=== PATIENT | male | born 1980 | race American Indian/Alaskan Native ===

== ENCOUNTER 2018-07-14 01:57 | Emergency (ER) | payer MEDICARE ==
[2018-07-14 03:40] LABS: Basophils # (Auto) 0.1 K/mm3 (0.0-0.1); Eosinophils # (Auto) 0.1 K/mm3 (0.0-0.4); Eosinophils % (Auto) 1.8 % (0.0-4.3); Hematocrit 45.6 % (35.5-45.6); Hemoglobin 16.2 gm/dl (11.8-15.2); Lymphocytes # (Auto) 1.9 K/mm3 (1.2-5.4); Lymphocytes % (Auto) 32.8 % (13.4-35.0); Mean Corpuscular HGB Conc 36 % (32-34); Mean Corpuscular Hemoglobin 31 pg (28-32); Mean Corpuscular Volume 87 fl (84-94); Monocytes # (Auto) 0.5 K/mm3 (0.0-0.8); Monocytes % (Auto) 8.7 % (0.0-7.3); Platelet Count 208 K/mm3 (140-440); Red Blood Count 5.25 M/mm3 (3.65-5.03); Red Cell Distribution Width 12.9 % (13.2-15.2)
[2018-07-14 03:53] LABS: BUN/Creatinine Ratio 18; Blood Urea Nitrogen 14 mg/dL (9-20); Calcium 9.6 mg/dL (8.4-10.2); Hemolysis Index 117
[2018-07-14 04:54] LABS: Bilirubin,Urine NEG (Negative); Blood,Urine NEG (Negative); Color,Urine Yellow (Yellow); Protein,Urine <15 mg/dL mg/dL (Negative); Urobilinogen,Urine < 2.0 mg/dL (<2.0); WBC,Urine < 1.0 /HPF (0.0-6.0)
[2018-07-14 05:02] LABS: RBC,Urine < 1.0 /HPF (0.0-6.0)
--- NOTE | 2018-07-14 10:59 | Emergency Department Report ---
ED General Adult HPI - General Chief complaint: Hyperglycemia Stated complaint: HIGH BLOOD SUGAR Time Seen by Provider: 07/14/18 10:15 Source: patient, family Mode of arrival: Ambulatory Limitations: No Limitations - History of Present Illness Initial comments: Patient presents to the emergency department for hyperglycemia. Patient has type 2 diabetes and states he is not on any medications currently. Patient had previous been on metformin twice daily but was able to get his prescription refilled. Patient denies any chest pain, shortness breath, or abdominal pain. -: Gradual Radiation: non-radiation Severity scale (0 -10): 0 Consistency: constant Improves with: none Worsens with: none Associated Symptoms: denies other symptoms - Related Data Previous Rx's Medication Instructions Recorded Last Taken Type metFORMIN [Glucophage] 500 mg PO BID #60 tablet 07/14/18 Unknown Rx Allergies Allergy/AdvReac Type Severity Reaction Status Date / Time Penicillins Allergy Itching Verified 07/14/18 03:19 ED Review of Systems ROS: Stated complaint: HIGH BLOOD SUGAR Other details as noted in HPI Comment: All other systems reviewed and negative Constitutional: denies: chills, fever Eyes: denies: eye pain, eye discharge, vision change ENT: denies: ear pain, throat pain Respiratory: denies: cough, shortness of breath, wheezing Cardiovascular: denies: chest pain, palpitations Endocrine: no symptoms reported Gastrointestinal: denies: abdominal pain, nausea, diarrhea Genitourinary: denies: urgency, dysuria Musculoskeletal: denies: back pain, joint swelling, arthralgia Skin: denies: rash, lesions Neurological: denies: headache, weakness, paresthesias Psychiatric: denies: anxiety, depression Hematological/Lymphatic: denies: easy bleeding, easy bruising ED Past Medical Hx - Past Medical History Hx Diabetes: Yes - Surgical History Hx Appendectomy: Yes - Social History Smoking Status: Never Smoker Substance Use Type: None - Medications Home Medications: Home Medications Medication Instructions Recorded Confirmed Last Taken Type metFORMIN [Glucophage] 500 mg PO BID #60 tablet 07/14/18 Unknown Rx ED Physical Exam - General Limitations: No Limitations General appearance: alert, in no apparent distress - Head Head exam: Present: atraumatic, normocephalic - Eye Eye exam: Present: normal appearance - ENT ENT exam: Present: mucous membranes moist - Neck Neck exam: Present: normal inspection - Respiratory Respiratory exam: Present: normal lung sounds bilaterally. Absent: respiratory distress, wheezes, rales - Cardiovascular Cardiovascular Exam: Present: regular rate, normal rhythm. Absent: systolic murmur, diastolic murmur, rubs, gallop - GI/Abdominal GI/Abdominal exam: Present: soft, normal bowel sounds. Absent: distended, tenderness - Rectal Rectal exam: Present: deferred - Extremities Exam Extremities exam: Present: normal inspection - Back Exam Back exam: Present: normal inspection - Neurological Exam Neurological exam: Present: alert, oriented X3, CN II-XII intact. Absent: motor sensory deficit - Psychiatric Psychiatric exam: Present: normal affect, normal mood - Skin Skin exam: Present: warm, dry, intact, normal color. Absent: rash ED Course Vital Signs 07/14/18 07/14/18 07/14/18 02:36 03:17 09:16 Temperature 98.9 F 98.9 F Pulse Rate 104 H 109 H Respiratory 18 18 16 Rate Blood Pressure 148/109 Blood Pressure 148/109 [Left] O2 Sat by Pulse 96 98 Oximetry ED Medical Decision Making - Lab Data Result diagrams: 07/14/18 03:23 07/14/18 03:23 - Medical Decision Making Discussed results with patient Critical care attestation.: If time is entered above; I have spent that time in minutes in the direct care of this critically ill patient, excluding procedure time. ED Disposition Clinical Impression: Hyperglycemia, Diabetes Disposition: DC-01 TO HOME OR SELFCARE Is pt being admited?: No Does the pt Need Aspirin: No Condition: Stable Instructions: Diabetes Mellitus Type 2 in Adults (ED) Additional Instructions: return if worse Prescriptions: metFORMIN [Glucophage] 500 mg PO BID #60 tablet Referrals: PRIMARY CARE, [Primary Care Provider] - 3-5 Days Time of Disposition: 10:58
[2018-07-14] MEDS ORDERED: GLUCOPHAGE ONE (11:12)
[2018-07-14] MEDS ORDERED: GLUCOPHAGE PO ONE (11:14)
[2018-07-14 11:15] VITALS: BP 134/92
== END 2018-07-14 11:16 | disposition home or self-care (01) ==
LOC: ED 01:57
DX: E11.65 Type 2 diabetes mellitus with hyperglycemia (principal); Z79.899 Other long term (current) drug therapy; Z88.0 Allergy status to penicillin; Z90.49 Acquired absence of other specified parts of digestive tract
CPT/HCPCS: 36415; 80048; 81001; 82805; 82962; 85025

== ENCOUNTER 2019-05-07 13:40 | Emergency (ER) | payer MEDICARE ==
[2019-05-07 13:52] VITALS: BP 131/98
--- NOTE | 2019-05-07 13:52 | Event Note ---
ED Screening Note ED Screening Note: Pt states that last night his blood sugar was reading TOO HIGH no N/V abd discomfort pt states he has a hemorrhoids/anal fissure PMHx DM, takes 1000mg twice a day, has not taken it in a month This initial assessment/diagnostic orders/clinical plan/treatment(s) is/are subject to change based on patients health status, clinical progression and re- assessment by fellow clinical providers in the ED. Further treatment and workup at subsequent clinical providers discretion. Patient/guardian urged not to elope from the ED as their condition may be serious if not clinically assessed and managed. Initial orders include: labs, UA, accucheck
[2019-05-07 14:46] LABS: Bilirubin,Urine NEG (Negative); Blood,Urine NEG (Negative); Color,Urine Yellow (Yellow); Protein,Urine <15 mg/dL mg/dL (Negative); Urobilinogen,Urine < 2.0 mg/dL (<2.0)
[2019-05-07 15:07] LABS: Hematocrit 44.6 % (35.5-45.6); Hemoglobin 15.4 gm/dl (11.8-15.2); Mean Corpuscular HGB Conc 35 % (32-34); Mean Corpuscular Hemoglobin 30 pg (28-32); Mean Corpuscular Volume 88 fl (84-94); Platelet Count 182 K/mm3 (140-440); Red Blood Count 5.09 M/mm3 (3.65-5.03); Red Cell Distribution Width 12.5 % (13.2-15.2)
[2019-05-07 15:30] LABS: BUN/Creatinine Ratio 16; Blood Urea Nitrogen 14 mg/dL (9-20); Calcium 10.4 mg/dL (8.4-10.2); Hemolysis Index 41
--- NOTE | 2019-05-07 15:35 | Emergency Department Report ---
HPI - General Chief Complaint: Hyperglycemia Time Seen by Provider: 05/07/19 13:48 - HPI HPI: 39-year-old male presents to the emergency department with a complaint of a few days of some abdominal pain, elevated blood sugar readings and he complains of hemorrhoids and a fissure. The patient has a history of [id number] diabetes and used to be on metformin 1000 mg twice daily but has not been on it for one month as he says that his primary care physician did not write him any refills. His PCP is Dr. Ayad Garcia. The abdominal pain is generalized. He denies any nausea, vomiting, dysuria, diarrhea. He does have some pain with bowel movements secondary to the hemorrhoids. He has not taken anything for her symptoms prior to arrival today. ED Past Medical Hx - Past Medical History Previous Medical History?: Yes Hx Diabetes: Yes - Surgical History Past Surgical History?: Yes Hx Appendectomy: Yes - Social History Smoking Status: Never Smoker Substance Use Type: Alcohol - Medications Home Medications: Home Medications Medication Instructions Recorded Confirmed Last Taken Type Hydrocortisone [Anusol-Hc 2.5% TOP 30 gm RC BID #1 tube 05/07/19 Unknown Rx CREAM] Metformin HCl [metFORMIN] 1,000 mg PO BID #60 tablet 05/07/19 Unknown Rx ED Review of Systems ROS: Stated complaint: HIGH BLOOD SUGAR/HEMMORID Other details as noted in HPI Comment: All other systems reviewed and negative Constitutional: denies: chills, fever Eyes: denies: eye pain, vision change ENT: denies: ear pain, throat pain Respiratory: denies: cough, shortness of breath Cardiovascular: denies: chest pain, palpitations Gastrointestinal: abdominal pain. denies: nausea, vomiting Genitourinary: denies: dysuria, discharge Musculoskeletal: denies: back pain, arthralgia Skin: denies: rash, lesions Neurological: denies: headache, weakness Physical Exam - Physical Exam Vital Signs: Vital Signs 05/07/19 13:49 Temperature 99.3 F Pulse Rate 91 H Respiratory 16 Rate Blood Pressure 131/98 O2 Sat by Pulse 99 Oximetry Physical Exam: GENERAL: The patient is well-developed well-nourished. HENT: Normocephalic. Atraumatic. Patient has moist mucous membranes. EYES: Extraocular motions are intact. NECK: Supple. Trachea is midline. CHEST/LUNGS: Clear to auscultation. There is no respiratory distress noted. HEART/CARDIOVASCULAR: Regular. There is no tachycardia. There is no murmur. ABDOMEN: Abdomen is soft, nontender. No guarding. Patient has normal bowel sounds. There is no abdominal distention. SKIN: Skin is warm and dry. NEURO: The patient is awake, alert, and oriented. The patient is cooperative. The patient has no focal neurologic deficits. The patient has normal speech. MUSCULOSKELETAL: There is no tenderness or deformity. There is no limitation range of motion. There is no evidence of acute injury. RECTAL: There is a small nonthrombosed hemorrhoid at the 6 o'clock position. ED Course Vital Signs 05/07/19 13:49 Temperature 99.3 F Pulse Rate 91 H Respiratory 16 Rate Blood Pressure 131/98 O2 Sat by Pulse 99 Oximetry ED Medical Decision Making - Lab Data Result diagrams: 05/07/19 14:53 05/07/19 14:53 - Radiology Data Radiology results: image reviewed interpreted by me: Abdominal x-ray shows nonspecific nonobstructive bowel gas. - Medical Decision Making Regarding the patient's hyperglycemia, the patient does have a blood sugar of 40 0 on his serum glucose level. There is no venous acidosis. No significant elevation in his anion gap, and the patient does not appear to be in diabetic ketoacidosis. An IV was placed and he was given 1 L of IV fluid, along with IV insulin, and upon reevaluation his blood sugars down to about 250. The rest of his labs have been mostly unremarkable. Abdominal x-ray shows nonspecific nonobstructive bowel gas. A rectal examination was done with nurse Enriquez at bedside and the patient appears to have a nonthrombosed external hemorrhoid at the 6 o'clock position. No significant anal fissure seen. The patient will be restarted on his metformin and instructed to follow-up with his primary care physician. He'll be given a prescription for Anusol. He will keep a blood sugar log. He will return to the ER with any worsening of his symptoms or any acute distress. - Differential Diagnosis hemorrhoid, anal fissure, hyperglycemia, DKA, HHNK Critical Care Time: No Critical care attestation.: If time is entered above; I have spent that time in minutes in the direct care of this critically ill patient, excluding procedure time. ED Disposition Clinical Impression: Noncompliance with medication regimen Hyperglycemia due to type 2 diabetes mellitus Qualifiers: Diabetes mellitus manager action insulin use: unspecified manager action insulin use status Qualified Code(s): E11.65 - Type 2 diabetes mellitus with hyperglycemia Abdominal pain Qualifiers: Abdominal location: generalized Qualified Code(s): R10.84 - Generalized abd ominal pain Hemorrhoid Qualifiers: Hemorrhoid type: unspecified Qualified Code(s): K64.9 - Unspecified hemorrhoids Disposition: TO HOME OR SELFCARE Is pt being admited?: No Condition: Stable Instructions: Hemorrhoids (ED), Diabetes Mellitus Type 2 in Adults (ED), Abdominal Pain (ED), Diabetic Hyperglycemia (ED) Additional Instructions: Please follow-up with your primary care physician in the next few days. I am restarting you on your metformin. Try and stay away from food that are high in sugar, carbohydrates and starches. Keep a blood sugar log. Return to the emergency department with any worsening of your symptoms or any acute distress. Prescriptions: Hydrocortisone [Anusol-Hc 2.5% TOP CREAM] 30 gm RC BID #1 tube Metformin HCl [metFORMIN] 1,000 mg PO BID #60 tablet Referrals: Primary Care Provider, Your [Other] - 2-3 Days Time of Disposition: 17:58
[2019-05-07] MEDS ORDERED: HumuLIN R IV ONE (15:45)
[2019-05-07] MEDS ORDERED: NACL 0.9% 1000 ML 1,000 ML IV ONE (15:45)
--- NOTE | 2019-05-07 16:08 | XRay Report ---
SUPINE AND UPRIGHT ABDOMEN 05/07/2019 3:49 PM HISTORY: Abdominal Pain. FINDINGS: There is a normal bowel gas pattern without evidence of obstruction. No free air is identi fied. No abnormal calcifications or organomegaly. No osseous abnormality. IMPRESSION: Negative 2 views of the abdomen. Signer Name: Tommie Huitron MD Signed: 05/07/2019 4:04 PM Workstation Name: [id number]
[2019-05-07 19:10] LABS: Anisocytosis 1+; Basophils % (Manual) 0 % (0.0-1.8); Large Platelets 1+; Ovalocytes 1+; Platelet Estimate Consistent w Auto; Total Cells Counted 100
== END 2019-05-07 18:21 | disposition home or self-care (01) ==
LOC: ED 13:40
DX: E11.65 Type 2 diabetes mellitus with hyperglycemia (principal); K64.9 Unspecified hemorrhoids; Z91.14 Patient's other noncompliance with medication regimen; Z90.49 Acquired absence of other specified parts of digestive tract; Z79.899 Other long term (current) drug therapy; Z88.0 Allergy status to penicillin
CPT/HCPCS: 36415; 74019; 80048; 81001; 82805; 82962; 85007; 85025; 96361; 96374; 99284; J7030; J1815

== ENCOUNTER 2021-10-28 18:19 | Emergency (ER) | payer MEDICARE | END 2021-10-29 04:00 | disposition left against medical advice (07) | LOC: ED 18:19 | DX: R10.9 Unspecified abdominal pain (principal); Z53.21 Procedure and treatment not carried out due to patient leaving prior to being seen by health care provider ==

== ENCOUNTER 2021-10-30 12:22 | Emergency (ER) | payer MEDICARE | END 2021-10-30 16:00 | disposition left against medical advice (07) | LOC: ED 12:22 | DX: T14.8XXA Other injury of unspecified body region, initial encounter (principal); Z53.21 Procedure and treatment not carried out due to patient leaving prior to being seen by health care provider ==

== ENCOUNTER 2021-11-16 22:30 | Emergency (ER) | payer MEDICARE ==
[2021-11-17 04:03] VITALS: BP 152/89
--- NOTE | 2021-11-17 08:03 | Emergency Department Report ---
- General Chief complaint: Skin Rash Stated complaint: OPEN SORES Time Seen by Provider: 11/17/21 07:44 Source: patient Mode of arrival: Ambulatory Limitations: No Limitations - History of Present Illness Initial comments: 41-year-old -[place] male with mental history presents to the emergency room complaining of open sores all over his body for the last 7 months. Patient reports he has a history of diabetes but states that he is not on any medication and is never followed up with any referrals that was given to him. Patient reports that the sore on his bottom have been draining. Patient reports that he was seen here in the past for them and was given some antibiotics but I do not see any visit note for that. complaint: lesion Onset/Timin -: month(s) Tetanus Up to Date: yes Location: generalized Severity: moderate Severity scale (0 -10): 4 Consistency: constant Improves with: none Treatments Prior to Arrival: bandages - Related Data Previous Rx's Medication Instructions Recorded Last Taken Type Hydrocortisone [Anusol-Hc 2.5% TOP 30 gm RC BID #1 tube 05/07/19 Unknown Rx CREAM] Metformin HCl [metFORMIN] 1,000 mg PO BID #60 tablet 05/07/19 Unknown Rx Mupirocin [Bactroban 2%] 1 applic TP TID #1 tube 11/17/21 Unknown Rx Sulfamethoxazole/Trimethoprim 1 each PO BID 10 Days #20 tab 11/17/21 Unknown Rx [Bactrim DS TAB] Allergies Allergy/AdvReac Type Severity Reaction Status Date / Time Penicillins Allergy Itching Verified 11/17/21 04:07 Abscess Boil HPI - HPI Chief Complaint: Skin Rash Stated Complaint: OPEN SORES Time Seen by Provider: 11/17/21 07:44 HPI: 41-year-old female with emergency room for 3 week history of a boil on her right lower abdomen. Patient states is painful and red. States she has been taking something for pain but not tablets. Denies any fever chills no nausea no vomiting no drainage from the wound. States she has never had this before. Home Medications: Previous Rx's Medication Instructions Recorded Last Taken Type Hydrocortisone [Anusol-Hc 2.5% TOP 30 gm RC BID #1 tube 05/07/19 Unknown Rx CREAM] Metformin HCl [metFORMIN] 1,000 mg PO BID #60 tablet 05/07/19 Unknown Rx Mupirocin [Bactroban 2%] 1 applic TP TID #1 tube 11/17/21 Unknown Rx Sulfamethoxazole/Trimethoprim 1 each PO BID 10 Days #20 tab 11/17/21 Unknown Rx [Bactrim DS TAB] Allergies/Adverse Reactions: Allergies Allergy/AdvReac Type Severity Reaction Status Date / Time Penicillins Allergy Itching Verified 11/17/21 04:07 ED Review of Systems ROS: Stated complaint: OPEN SORES Other details as noted in HPI Comment: All other systems reviewed and negative ED Past Medical Hx - Past Medical History Hx Diabetes: Yes - Surgical History Hx Appendectomy: Yes - Social History Smoking Status: Never Smoker Substance Use Type: Alcohol - Medications Home Medications: Home Medications Medication Instructions Recorded Confirmed Last Taken Type Hydrocortisone [Anusol-Hc 2.5% TOP 30 gm RC BID #1 tube 05/07/19 Unknown Rx CREAM] Metformin HCl [metFORMIN] 1,000 mg PO BID #60 tablet 05/07/19 Unknown Rx Mupirocin [Bactroban 2%] 1 applic TP TID #1 tube 11/17/21 Unknown Rx Sulfamethoxazole/Trimethoprim 1 each PO BID 10 Days #20 tab 11/17/21 Unknown Rx [Bactrim DS TAB] ED Physical Exam - General Limitations: No Limitations General appearance: alert, in no apparent distress - Head Head exam: Present: atraumatic, normocephalic - Eye Eye exam: Present: normal appearance - ENT ENT exam: Present: mucous membranes moist - Neck Neck exam: Present: full ROM - Respiratory Respiratory exam: Absent: respiratory distress, accessory muscle use - Cardiovascular Cardiovascular Exam: Present: regular rate - Extremities Exam Extremities exam: Present: full ROM - Neurological Exam Neurological exam: Present: alert, oriented X3, normal gait - Psychiatric Psychiatric exam: Present: anxious - Expanded Psychiatric Exam Expanded Focused psych exam: Present: delusional, flight of ideas, loose associations - Skin Skin exam: Present: rash - Expanded Skin Exam Expanded Distribution of rash: generalized Description of rash: Present: macular, discharge (Sores on his bottom). Absent: tenderness ED Course Vital Signs 11/17/21 04:00 Temperature 98.6 F Pulse Rate 110 H Respiratory 18 Rate Blood Pressure 152/89 O2 Sat by Pulse 99 Oximetry ED Medical Decision Making - Medical Decision Making 41-year-old -Sy[place] male with mental history presents to the emergency room complaining of open sores all over his body for the last 7 months. Patient reports he has a history of diabetes but states that he is not on any medication and is never followed up with any referrals that was given to him. Patient reports that the sore on his bottom have been draining. Patient reports that he was seen here in the past for them and was given some antibiotics but I do not see any visit note for that. Critical care attestation.: If time is entered above; I have spent that time in minutes in the direct care of this critically ill patient, excluding procedure time. ED Disposition Clinical Impression: Staphylococcal infection of skin Disposition: 01 HOME / SELF CARE / HOMELESS Is pt being admited?: No Does the pt Need Aspirin: No Condition: Stable Instructions: Antibiotic Medicine, Adult, [id number] Additional Instructions: Complete antibiotics as prescribed. Use ointment to the wounds. Follow-up with a concrete pipe plant supervisor in the primary care provider. Prescriptions: Sulfamethoxazole/Trimethoprim [Bactrim DS TAB] 1 each PO BID 10 Days #20 tab Mupirocin [Bactroban 2%] 1 applic TP TID #1 tube Referrals: [facility] [Provider Group] - 3-5 Days Forms: Work/School Release Form(ED) Time of Disposition: 07:48
== END 2021-11-17 09:08 | disposition home or self-care (01) ==
LOC: ED 22:30
DX: A49.1 Streptococcal infection, unspecified site (principal)
CPT/HCPCS: 99282

== ENCOUNTER 2021-12-03 23:36 | Emergency (ER) | payer MEDICARE ==
[2021-12-03] MEDS ORDERED: SODIUM CHLORIDE 0.9% 1000 ML 1,000 ML IV ONE (23:51)
[2021-12-04 00:19] VITALS: BP 128/83
[2021-12-04 01:04] LABS: Blood Urea Nitrogen 7 mg/dL (9-20); Calcium 8.8 mg/dL (8.4-10.2); Hemolysis Index 48
[2021-12-04 01:06] LABS: BUN/Creatinine Ratio 12
== END 2021-12-04 02:32 | disposition home or self-care (01) ==
LOC: ED 23:36
DX: E11.65 Type 2 diabetes mellitus with hyperglycemia (principal); R55 Syncope and collapse; Z91.14 Patient's other noncompliance with medication regimen; Z88.0 Allergy status to penicillin; Z72.89 Other problems related to lifestyle; Z79.899 Other long term (current) drug therapy; Z79.84 Long term (current) use of oral hypoglycemic drugs
CPT/HCPCS: 36415; 80048; 82962; 93005; 93010; 96360; 99284; J7030; Q0162

== ENCOUNTER 2021-12-04 08:34 | Emergency (ER) | payer MEDICARE ==
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
[2021-12-04 09:25] VITALS: BP 124/83
== END 2021-12-04 09:25 | disposition home health service (06) ==
LOC: ED 08:34
DX: R10.9 Unspecified abdominal pain (principal)
CPT/HCPCS: 99282

== ENCOUNTER 2022-04-30 00:42 | Emergency (ER) | payer MEDICARE ==
[2022-04-30] MEDS ORDERED: SODIUM CHLORIDE 0.9% 1000 ML 1,000 ML IV ONE (09:31)
[2022-04-30] MEDS ORDERED: INSULIN REGULAR, HUMAN 100 UNITS/1 ML IV ONE (09:31)
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
[2022-04-30 11:17] VITALS: BP 142/78
== END 2022-04-30 11:50 | disposition home or self-care (01) ==
LOC: ED 00:42
DX: L08.9 Local infection of the skin and subcutaneous tissue, unspecified (principal); E11.65 Type 2 diabetes mellitus with hyperglycemia; Z90.89 Acquired absence of other organs; F17.290 Nicotine dependence, other tobacco product, uncomplicated; Z88.0 Allergy status to penicillin
CPT/HCPCS: 82962; 96361; 96374; 99283; J7030; Q9967; J1815